=== PATIENT | female | born 1990 | race Caucasian/White ===

== ENCOUNTER 2018-08-14 18:03 | Inpatient (IN) | payer MEDICAID ==
[~2018-08-14] VITALS: Ht 167.6 cm; Wt 59.1 kg
--- NOTE | ~2018-08-14 | CN ---
PATIENT NAME:PILO LAMBERT MEDICAL RECORD: [id number] : 89 LOCATION:[facility] ADMIT DATE: 08/14/18 ACCOUNT: [id number] CONSULTING PHYSICIAN: JAMIN WEAVER MD REFERRING PHYSICIAN: MANSOOR SILVEIRA DO DATE OF CONSULTATION: 08/15/2018 CONSULT REQUESTING PHYSICIAN: Markie Lorenzana MD REASON FOR CONSULTATION: Pneumonia, pleurisy, and hemoptysis. HISTORY OF PRESENT ILLNESS: Ms. Cummings is a 28-year-old female who is sick since Sunday. She is coughing. She has shortness of breath. She has a right pleuritic type of chest pain. She also had fever and night sweats. She has generalized malaise. The patient came into the ER for further evaluation and found out the patient has a right pleural effusion and pneumonia, right lower lobe. REVIEW OF SYSTEMS: As in the history of present illness. PAST MEDICAL HISTORY: Nonsignificant. ALLERGIES: There are no known drug allergies. MEDICATIONS: On [employer] is reviewed. PERSONAL AND SOCIAL HISTORY: The patient is a smoker. She is a nondrinker. She is a nondrinker. FAMILY HISTORY: Noncontributory. PHYSICAL EXAMINATION: GENERAL: Now, the patient is lying comfortable, she is not in acute distress. VITAL SIGNS: The blood pressure is 101/71, pulse is 89, respirations 16, temperature is 98.1, SpO2 is 98% on room air. HEENT: Conjunctivae are pink. Sclerae are not icteric. NECK: Supple. No JVD. CHEST: There is a crackle at the right base. No wheezing. HEART: Rhythm regular, normal sound, no murmur. ABDOMEN: Soft, bowel sounds present. No hepatosplenomegaly. RECTAL: Deferred. EXTREMITIES: No cyanosis, no clubbing, no pedal edema. SKIN: Warm, normal turgor. CENTRAL NERVOUS SYSTEM: The patient is awake and alert. There are no obvious cranial nerve abnormalities. The gait was not tested. CHEST RADIOGRAPH: There is a fluid level on the right side. There is a right lower lobe infiltrate. OTHER LABORATORY DATA: CBC: WBC is 19.9, hemoglobin 12.1, hematocrit 34, and platelet count is 244. Chemistry: Sodium 142, potassium is 3, BUN is 4, creatinine 0.5. IMPRESSION: CONSULT REPORT [id number] PILO LAMBERT 1. Pneumonia, right lower lobe, consistent with a community-acquired pneumonia, possible Streptococcus pneumoniae. 2. Right pleural effusion with fluid level, parapneumonic, possible empyema. 3. Pleurisy. 4. Hemoptysis secondary to pneumonia. I will doubt pulmonary embolism. 5. Leukocytosis. 6. Tobacco dependence syndrome. 7. Hyponatremia. RECOMMENDATION: 1. Continue meropenem and vancomycin. I will add Levaquin. 2. We will get the CT scan of the chest. 3. Follow up labs and chest radiograph. 4. Racemic epinephrine nebulizer q. [address] for hemoptysis. Dr. Lorenzana, thank you for involving me in the care of Ms. Lambert. TRANSINT:[id number] Voice Confirmation ID: [id number] DOCUMENT ID: [id number] JAMIN WEAVER MD CC: [id number] DICTATION DATE: 08/15/181746 PACKAGE DYE STAND LOADER: 08/15/182157 ADM IN [facility] [address] [id number]
[2018-08-14 18:59] LABS: APPEARANCE CLEAR (CLEAR); BILIRUBIN NEGATIVE (NEGATIVE); COLOR YELLOW (YELLOW); GLUCOSE NEGATIVE (NEGATIVE); KETONE NEGATIVE (NEGATIVE); NITRITE NEGATIVE (NEGATIVE); PROTEIN TRACE mg/dL (NEGATIVE); UROBILINOGEN NORMAL (NORMAL)
[2018-08-14 19:00] LABS: BACTERIA MANY /hpf (NONE SEEN); EPITHELIAL CELLS 0-5 /hpf (0-5); RED CELLS - URINE OCC /hpf (0-5)
[2018-08-14 19:20] LABS: HEMATOCRIT 36.5 % (36.0-48.0); HEMOGLOBIN 13.3 g/dL (12-16); MCHC 36.4 g/dL (31.0-37.0); MCV 93.4 fL (80.0-100.0); PLATELET COUNT 237 10x3/uL (130-400); RBC 3.91 10x6/uL (4.00-5.40); RDW 12.4 % (11.5-14.5); WBC 22.1 10x3/uL (4.8-10.8)
[2018-08-14 19:25] LABS: APTT 34.2 SECONDS (22.8-39.4); INR 1.38 (0.85-1.17); PROTIME 16.4 SECONDS (11.6-15.0)
[2018-08-14 19:52] LABS: ALBUMIN 2.5 g/dL (3.4-5.0); ALKALINE PHOSPHATASE 221 U/L (46-116); ALT (SGPT) 480 U/L (10-68); BILIRUBIN - TOTAL 0.95 mg/dL (0.2-1.3); CALC OSMOLALITY 263 mosm/kg (275-300); CALCIUM 8.6 mg/dL (8.5-10.1); CARBON DIOXIDE 28.1 mmol/L (21.0-32.0); CHLORIDE - SERUM 95 mmol/L (98-107); CKMB 0.2 U/L (0.0-3.6); CREATINE KINASE 69 UL (21-215); CREATININE - SERUM 0.8 mg/dL (0.6-1.3); GLUCOSE 140 mg/dL (74-106); PROTEIN - SERUM 7.2 g/dL (6.4-8.2); SODIUM 132 mmol/L (136-145); UREA NITROGEN 3 mg/dL (7-18); eGFR NON AFRICAN AMERICAN > 90 mL/min (90-120)
[2018-08-14 19:53] LABS: POTASSIUM - SERUM 2.4 mmol/L (3.5-5.1); TROPONIN-I < 0.017 ng/mL (0.000-0.060)
[2018-08-14 20:14] LABS: LYMPHOCYTES 5 % (15-50); NEUTROPHILS 94 % (40-80); PLATELET ESTIMATE NORMAL
[2018-08-14 22:26] LABS: HCG URINE NEGATIVE (NEGATIVE)
[2018-08-14 22:29] LABS: AMYLASE - SERUM 26 U/L (25-115); LIPASE 75 U/L (73-393)
[2018-08-14 23:36] VITALS: BP 101/71
[2018-08-15] VITALS (13 sets, daily range): BP systolic 83–133; BP diastolic 58–83; Ht 167.6 cm; Wt 59.1 kg
[2018-08-15 05:09] LABS: BASOPHILS 0.1 % (0-2); EOSINOPHILS 0.3 % (0-7); HEMOGLOBIN 12.1 g/dL (12-16); IMMATURE GRANULOCYTES 0.9 % (0-5); LYMPHOCYTES 9.7 % (15-50); MCH 33.3 pg (26.0-34.0); MCHC 35.6 g/dL (31.0-37.0); MCV 93.7 fL (80.0-100.0); MONOCYTES 6.7 % (2-11); NEUTROPHILS 82.3 % (40-80); PLATELET COUNT 244 10x3/uL (130-400); RBC 3.63 10x6/uL (4.00-5.40); RDW 12.7 % (11.5-14.5); WBC 19.9 10x3/uL (4.8-10.8)
[2018-08-15 06:04] LABS: ALKALINE PHOSPHATASE 194 U/L (46-116); BILIRUBIN - TOTAL 0.63 mg/dL (0.2-1.3); CARBON DIOXIDE 29.7 mmol/L (21.0-32.0); CHLORIDE - SERUM 103 mmol/L (98-107); GLUCOSE 96 mg/dL (74-106); SODIUM 142 mmol/L (136-145)
[2018-08-15 06:14] LABS: ALT (SGPT) 330 U/L (10-68); CALC OSMOLALITY 279 mosm/kg (275-300); CREATININE - SERUM 0.5 mg/dL (0.6-1.3); PROTEIN - SERUM 5.3 g/dL (6.4-8.2); UREA NITROGEN 4 mg/dL (7-18); eGFR NON AFRICAN AMERICAN > 90 mL/min (90-120)
[2018-08-16] VITALS (7 sets, daily range): BP systolic 97–124; BP diastolic 50–79
[2018-08-16 07:19] LABS: BASOPHILS 0.3 % (0-2); EOSINOPHILS 2.3 % (0-7); HEMATOCRIT 34.5 % (36.0-48.0); HEMOGLOBIN 12.4 g/dL (12-16); IMMATURE GRANULOCYTES 0.7 % (0-5); LYMPHOCYTES 20.3 % (15-50); MCH 33.8 pg (26.0-34.0); MCHC 35.9 g/dL (31.0-37.0); MEAN PLATELET VOLUME 8.7 fL (7.4-10.4); MONOCYTES 7.6 % (2-11); NEUTROPHILS 68.8 % (40-80); PLATELET COUNT 285 10x3/uL (130-400); RBC 3.67 10x6/uL (4.00-5.40); RDW 12.7 % (11.5-14.5)
[2018-08-16 07:20] LABS: WBC 10.4 10x3/uL (4.8-10.8)
[2018-08-16 07:41] LABS: ALBUMIN 1.9 g/dL (3.4-5.0); ALKALINE PHOSPHATASE 187 U/L (46-116); BILIRUBIN - TOTAL 0.43 mg/dL (0.2-1.3); CALC OSMOLALITY 279 mosm/kg (275-300); CALCIUM 7.8 mg/dL (8.5-10.1); CARBON DIOXIDE 32.4 mmol/L (21.0-32.0); CHLORIDE - SERUM 103 mmol/L (98-107); CREATININE - SERUM 0.6 mg/dL (0.6-1.3); GLUCOSE 95 mg/dL (74-106); PHOSPHOROUS 4.2 mg/dL (2.5-4.9); PROTEIN - SERUM 5.6 g/dL (6.4-8.2); SODIUM 142 mmol/L (136-145); UREA NITROGEN 3 mg/dL (7-18); eGFR NON AFRICAN AMERICAN > 90 mL/min (90-120)
[2018-08-16 07:42] LABS: ALT (SGPT) 224 U/L (10-68); POTASSIUM - SERUM 3.8 mmol/L (3.5-5.1)
[2018-08-17 04:00] VITALS: BP 105/57
[2018-08-17 06:30] LABS: BASOPHILS 0.3 % (0-2); EOSINOPHILS 4.7 % (0-7); HEMOGLOBIN 12.6 g/dL (12-16); IMMATURE GRANULOCYTES 0.3 % (0-5); LYMPHOCYTES 26.8 % (15-50); MCV 94.2 fL (80.0-100.0); MONOCYTES 5.6 % (2-11); NEUTROPHILS 62.3 % (40-80); RBC 3.82 10x6/uL (4.00-5.40); RDW 12.6 % (11.5-14.5)
[2018-08-17 06:33] LABS: PLATELET COUNT 352 10x3/uL (130-400); WBC 7.6 10x3/uL (4.8-10.8)
[2018-08-17 07:14] LABS: ALBUMIN 1.9 g/dL (3.4-5.0); ALKALINE PHOSPHATASE 159 U/L (46-116); BILIRUBIN - TOTAL 0.37 mg/dL (0.2-1.3); CALCIUM 8.3 mg/dL (8.5-10.1); CARBON DIOXIDE 33.5 mmol/L (21.0-32.0); CHLORIDE - SERUM 103 mmol/L (98-107); CREATININE - SERUM 0.6 mg/dL (0.6-1.3); GLUCOSE 96 mg/dL (74-106); PHOSPHOROUS 4.5 mg/dL (2.5-4.9); POTASSIUM - SERUM 3.6 mmol/L (3.5-5.1); PROTEIN - SERUM 6.2 g/dL (6.4-8.2); SODIUM 142 mmol/L (136-145); eGFR NON AFRICAN AMERICAN > 90 mL/min (90-120)
[2018-08-17 07:15] LABS: ALT (SGPT) 161 U/L (10-68); CALC OSMOLALITY 280 mosm/kg (275-300); UREA NITROGEN 6 mg/dL (7-18)
[2018-08-17 08:18] VITALS: BP 107/67
[2018-08-17 12:01] VITALS: BP 96/59
[2018-08-17 15:40] VITALS: BP 95/57
== END 2018-08-17 21:00 | disposition left against medical advice (07) | DRG 193 ==
LOC: D.ER 18:03 → D.EDHOLD 22:23 → D.WS 08-15 15:15 → D.M3 08-16 18:45
PROVIDERS: Emergency Medicine; Family Medicine
DX: J13 Pneumonia due to Streptococcus pneumoniae (principal); J86.9 Pyothorax without fistula; F17.213 Nicotine dependence, cigarettes, with withdrawal; R04.2 Hemoptysis; E87.1 Hypo-osmolality and hyponatremia; N39.0 Urinary tract infection, site not specified